=== PATIENT | female | born 1955 | race Caucasian/White ===

== ENCOUNTER 2019-03-12 12:14 | Inpatient (IN) | payer MEDICARE, OTHER ==
[~2019-03-12] VITALS: Ht 149.9 cm; Wt 71.0 kg
[~2019-03-12 12:14] MED LIST: BENA40TA56 PO; HYDR-3980 PO; HYDR25TA6 PO; MELO15TA30 PO; METO-448 PO; SOLI5TAB2 PO
[2019-03-12 13:51] VITALS: BMI 32.2
[2019-04-01 16:19] VITALS: Ht 149.9 cm; Wt 71.0 kg
[2019-04-03] VITALS (47 sets, daily range): BP systolic 92–187; BP diastolic 38–99; PULSE 60–118; RESP 14–26
[2019-04-03] MEDS ORDERED: hydrALAzine 20 MG INJ IV ONE (13:00)
[2019-04-03] MEDS ORDERED: MIDAZOLAM 1 MG/ML 2 ML INJ ONE (13:35)
[2019-04-03] MEDS ORDERED: SEVOFLURANE 15 MIN ONE (13:35)
[2019-04-03] MEDS ORDERED: POLYMYXIN/BACITRACIN 1L IRRIG IRR ONE (14:06)
[2019-04-03] MEDS ORDERED: hydrALAzine 20 MG INJ ONE (14:33)
[2019-04-03] MEDS ORDERED: morphine 10 MG INJ ONE (15:05)
[2019-04-03] MEDS ORDERED: ETOMIDATE 20 MG INJ ONE (16:12)
[2019-04-03] MEDS ORDERED: LIDOCAINE 2% (SDV) 5 ML INJ ONE (16:12)
[2019-04-03] MEDS ORDERED: ROCURONIUM 50 MG INJ ONE (16:12)
[2019-04-03] MEDS ORDERED: CEFAZOLIN 1 GM INJ ONE (16:12)
[2019-04-03] MEDS ORDERED: ONDANSETRON 4 MG INJ ONE (16:13)
[2019-04-03] MEDS ORDERED: ROPIVACAINE 0.5 % 30 ML VIAL ONE (16:14)
[2019-04-03] MEDS ORDERED: DIPHENHYDRAMINE 50 MG INJ IV PRN (17:00)
[2019-04-03] MEDS ORDERED: LABETALOL HCL 20MG INJ IV PRN (17:00)
[2019-04-03] MEDS ORDERED: FENTAnyl 50 MCG/ML VIAL IV PRN (17:00)
[2019-04-03] MEDS ORDERED: METOCLOPRAMIDE 10 MG INJ IV PRN (17:00)
[2019-04-03] MEDS ORDERED: HYDROmorphONE 1 MG/5 ML IV SYRINGE IV PRN ×2 (17:00)
[2019-04-03] MEDS ORDERED: MEPERIDINE 25 MG INJ IV PRN (17:00)
[2019-04-03] MEDS ORDERED: hydrALAzine 20 MG INJ IV PRN (17:00)
[2019-04-03] MEDS ORDERED: ONDANSETRON 4 MG INJ IV PRN ×2 (17:00→22:30)
[2019-04-03] MEDS ORDERED: NACL 0.9% 3 ML SYG IV SCH (17:30)
[2019-04-03] MEDS ORDERED: SOLIFENACIN 5 MG TAB PO PRN (22:30)
[2019-04-03] MEDS ORDERED: METOPROLOL 5 MG INJ IV PRN (22:30)
[2019-04-03] MEDS: HYDROCODONE/APAP (5/325) TAB PO PRN (22:58)
[2019-04-03] MEDS: D5W-0.45 NACL + KCL 20 MEQ 1,000 ML IV SCH (22:58)
[2019-04-03] MEDS: LACTATED RINGER'S 1,000 ML IV SCH (22:59)
[2019-04-03] MEDS: METOPROLOL 25 MG TAB PO SCH (22:59)
[2019-04-04] VITALS: BP 116/78; RESP 20
[2019-04-04] MEDS: CEFAZOLIN 1 GM/50 ML (PMX) 50 ML IVPB SCH ×3 (00:28→16:05)
[2019-04-04] MEDS: morphine 4 MG/ML VIAL IV PRN ×3 (00:29→08:25)
[2019-04-04] MEDS: D5W-0.45 NACL + KCL 20 MEQ 1,000 ML IV SCH ×3 (03:10→22:50)
[2019-04-04 04:00] VITALS: BP 131/85; PULSE 97; RESP 20
[2019-04-04] MEDS: HYDROCODONE/APAP (5/325) TAB PO PRN ×4 (04:48→22:49)
[2019-04-04] MEDS: PANTOPRAZOLE (EC) 40 MG TAB PO SCH (06:18)
[2019-04-04 07:50] VITALS: BP 169/75; PULSE 77; RESP 17
[2019-04-04] MEDS ORDERED: POTASSIUM CHLORIDE (SR) 20 MEQ TAB PO STA (07:55)
[2019-04-04] MEDS: METOPROLOL 25 MG TAB PO SCH ×2 (08:31→21:37)
[2019-04-04] MEDS: BENAZEPRIL 40 MG TAB PO SCH (08:31)
[2019-04-04] MEDS: ENOXAPARIN 40 MG/0.4 ML SYG SC SCH (08:39)
[2019-04-04] MEDS ORDERED: HYDROCHLOROTHIAZIDE 25 MG TAB PO SCH (09:00)
[2019-04-04] MEDS ORDERED: MAGNESIUM SULFATE 2 GM/50 ML 50 ML IVPB ONE (09:00)
[2019-04-04] MEDS ORDERED: DOCUSATE SODIUM 100 MG CAP PO SCH (09:00)
[2019-04-04] MEDS: POTASSIUM CHLORIDE 100 ML IVPB SCH ×2 (09:34→17:19)
[2019-04-04] MEDS: HYDROmorphONE 1 MG/ML SYG IV PRN ×2 (10:47→19:59)
[2019-04-04 11:30] VITALS: BP 156/74; PULSE 79; RESP 17
[2019-04-04] MEDS: LACTATED RINGER'S 1,000 ML IV SCH (12:00)
[2019-04-04] MEDS: KETOROLAC 30 MG INJ IV SCH ×2 (13:56→21:37)
[2019-04-04 17:25] VITALS: BP 162/79; PULSE 71; RESP 17
[2019-04-04] MEDS ORDERED: POTASSIUM CHLORIDE 100 ML IVPB SCH (17:30)
[2019-04-04 20:00] VITALS: BP 115/56; PULSE 72; RESP 19
[2019-04-04] MEDS: DOCUSATE SODIUM 100 MG CAP PO SCH (21:36)
[2019-04-05] VITALS: BP 151/71; PULSE 71; RESP 20
[2019-04-05] MEDS: HYDROmorphONE 1 MG/ML SYG IV PRN ×5 (01:12→21:37)
[2019-04-05] MEDS: HYDROCODONE/APAP (5/325) TAB PO PRN ×3 (03:38→22:34)
[2019-04-05] MEDS: D5W-0.45 NACL + KCL 20 MEQ 1,000 ML IV SCH ×2 (03:42→19:03)
[2019-04-05 04:00] VITALS: BP 145/72; PULSE 73; RESP 21
[2019-04-05] MEDS: PANTOPRAZOLE (EC) 40 MG TAB PO SCH (06:51)
[2019-04-05] MEDS ORDERED: POTASSIUM CHLORIDE (SR) 20 MEQ TAB PO STA (07:42)
[2019-04-05] MEDS: POLYETHYLENE GLYCOL 17 GM PACKET PO PRN (07:59)
[2019-04-05] MEDS: DOCUSATE SODIUM 100 MG CAP PO SCH ×2 (08:00→20:40)
[2019-04-05] MEDS: METOPROLOL 25 MG TAB PO SCH (08:00)
[2019-04-05] MEDS: POTASSIUM CHLORIDE 100 ML IVPB SCH ×2 (08:00→11:46)
[2019-04-05 08:04] VITALS: BP 139/82; PULSE 81; RESP 18
[2019-04-05] MEDS: BENAZEPRIL 40 MG TAB PO SCH (08:45)
[2019-04-05] MEDS: ENOXAPARIN 40 MG/0.4 ML SYG SC SCH (09:32)
[2019-04-05 11:31] VITALS: BP 147/81; PULSE 70; RESP 18
[2019-04-05] MEDS: LACTATED RINGER'S 1,000 ML IV SCH (13:00)
[2019-04-05] MEDS ORDERED: MINERAL OIL 133 ML ENEMA PR ONE (14:30)
[2019-04-05] MEDS ORDERED: METHYLNALTREXONE 12 MG/0.6 ML VIAL SC PRN (15:30)
[2019-04-05 16:39] VITALS: BP 173/90; PULSE 77; RESP 18
[2019-04-05 20:00] VITALS: BP 159/84; PULSE 75; RESP 19
[2019-04-05] MEDS: METOPROLOL 50 MG TAB PO SCH (20:40)
[2019-04-05] MEDS: DIAZEPAM 5 MG TAB PO SCH (20:40)
[2019-04-06] VITALS: BP 143/87; PULSE 71; RESP 20
[2019-04-06] MEDS: HYDROmorphONE 1 MG/ML SYG IV PRN ×2 (02:54→06:43)
[2019-04-06 04:00] VITALS: BP 155/82; PULSE 75; RESP 20
[2019-04-06] MEDS: PANTOPRAZOLE (EC) 40 MG TAB PO SCH (06:43)
[2019-04-06 07:40] VITALS: BP 138/75; PULSE 68; RESP 18
[2019-04-06] MEDS: BENAZEPRIL 40 MG TAB PO SCH (08:13)
[2019-04-06] MEDS: METOPROLOL 50 MG TAB PO SCH (08:13)
[2019-04-06] MEDS: DOCUSATE SODIUM 100 MG CAP PO SCH ×2 (08:13→20:50)
[2019-04-06] MEDS: DIAZEPAM 5 MG TAB PO SCH ×2 (08:13→12:44)
[2019-04-06] MEDS: ENOXAPARIN 40 MG/0.4 ML SYG SC SCH (08:21)
[2019-04-06] MEDS ORDERED: POTASSIUM CHLORIDE (SR) 20 MEQ TAB PO SCH (09:00)
[2019-04-06] MEDS ORDERED: POTASSIUM CHLORIDE (SR) 20 MEQ TAB PO STA (09:49)
[2019-04-06] MEDS: HYDROCODONE/APAP (5/325) TAB PO PRN ×3 (10:05→18:25)
[2019-04-06 11:14] VITALS: BP 159/89; PULSE 72
[2019-04-06] MEDS: POLYETHYLENE GLYCOL 17 GM PACKET PO PRN (12:44)
[2019-04-06 15:45] VITALS: BP 134/77; PULSE 69; RESP 17
[2019-04-06 20:22] VITALS: BP 142/80; PULSE 77; RESP 18
[2019-04-06] MEDS ORDERED: BENAZEPRIL 20 MG TAB PO SCH (21:00)
== END 2019-04-06 20:58 | disposition home or self-care (01) | DRG 511 ==
LOC: REC 12:14 → UNDOADMIN 12:14 → INTOOBSV 04-03 09:24 → REC 04-03 09:24 → OBSVTOIN 04-03 19:23 → TEL 04-03 20:27
PROVIDERS: ADMIT Family Medicine; ATTEND Orthopaedic Surgery
PROC: 0RNJ0ZZ Release Right Shoulder Joint, Open Approach (ICD-10-PCS; 2019-04-03)
PROC: 0LQ10ZZ Repair Right Shoulder Tendon, Open Approach (ICD-10-PCS; principal; 2019-04-03 13:00)
DX: M75.41 Impingement syndrome of right shoulder (principal); I47.1 Supraventricular tachycardia; M75.101 Unspecified rotator cuff tear or rupture of right shoulder, not specified as traumatic; K59.03 Drug induced constipation; K31.9 Disease of stomach and duodenum, unspecified; I10 Essential (primary) hypertension; E66.9 Obesity, unspecified; Z68.33 Body mass index [BMI] 33.0-33.9, adult; E87.6 Hypokalemia; N39.3 Stress incontinence (female) (male); N32.89 Other specified disorders of bladder; T40.605A Adverse effect of unspecified narcotics, initial encounter; Y92.230 Patient room in hospital as the place of occurrence of the external cause
CPT/HCPCS: 71045; 76775; 80048; 80061; 81003; 83735; 83880; 84100; 84132; 84439; 84443; 85025; 93005; 97116; 97161; 99217; C1713; G0378; J0360; J0690; J1170; J1200; J1650; J1885; J2175; J2250; J2270; J2405; J2795; J3010; J3475; J3480; J7120